=== PATIENT | female | born 1975 | race Caucasian/White ===

== ENCOUNTER 2018-03-13 20:54 | Emergency (ER) | payer OTHER ==
[2018-03-13 20:55] VITALS: BMI 41.8
[2018-03-13 21:29] VITALS: TEMP 99.2
--- NOTE | 2018-03-13 22:40 | C.PDOC ---
History Of Present Illness 42 y/o female c/o left ankle pain and swelling since 11 am that has worsened; pt accidentally stepped in a hole on street and twisted ankle. denies any other injuries. Time Seen by Provider: 03/13/18 21:36 Chief Complaint (Nursing): Lower Extremity Problem/Injury History Per: Patient History/Exam Limitations: no limitations Onset/Duration Of Symptoms: Days (1) Current Symptoms Are (Timing): Still Present Severity: Moderate - Ankle/Foot Description Of Injury: Twisted Past Medical History Reviewed: Historical Data, Nursing Documentation, Vital Signs Vital Signs: Last Vital Signs Temp 99.2 F 03/13/18 21:26 Pulse 75 03/13/18 23:17 Resp 18 03/13/18 23:17 BP 138/71 03/13/18 23:17 Pulse Ox 98 03/13/18 23:17 - Medical History PMH: Arthritis, Asthma - [facility] Procedures LAPAROSCOPIC REPAIR UMBILICAL HERNIA W GRAFT OR PROSTHESIS (03/22/13) Family History: States: Unknown Family Hx - Social History Hx Tobacco Use: No Hx Alcohol Use: No Hx Substance Use: No - Immunization History Hx Tetanus Toxoid Vaccination: No Hx Influenza Vaccination: No Hx Pneumococcal Vaccination: No Review Of Systems Constitutional: Negative for: Fever, Chills Musculoskeletal: Positive for: Foot Pain (left ankle) Skin: Negative for: Rash, Bruising Neurological: Negative for: Weakness, Numbness Physical Exam - Physical Exam Appears: Non-toxic, No Acute Distress Skin: Warm, Dry Head: Atraumatic, Normacephalic Extremity: Other (swelling and tenderness to left lateral malleolus; +2 dp pulse , from. 5tyh metatarsal non tender) Pulses: Left Dorsalis Pedis: Normal, Right Dorsalis Pedis: Normal Neurological/Psych: Oriented x3, Normal Speech, Normal Cognition, Normal Motor, Normal Sensation ED Course And Treatment O2 Sat by Pulse Oximetry: 100 Orthopedic Time Performed: 23:05 Time Out: Side verified, Site verified, Patient ID confirmed Procedure: Splint Type: Short, Posterior Location: Left, Leg Consent obtained: Verbal Performed by: Mid-level Provider (done by cp, checked by me.) Diagnosis: Sprain Location: Lateral Bone: Malleolus Capillary refill: Normal Distal Sensation: Normal Distal Motor Function: Normal Distal Sensation: Normal Distal Motor Function: Normal Medical Decision Making Medical Decision Making: twisted swollen ankle- analgesic and xray. no fx noted on xray- posterior splint applied and crutches given. Disposition Counseled Patient/Family Regarding: Studies Performed, Diagnosis, Need For Followup, Rx Given - Disposition Referrals: Mason Ng III, MD [Staff Provider] - Disposition: HOME/ ROUTINE Disposition Time: 23:07 Condition: GOOD Additional Instructions: Please use crutches for first few days, no weight bearing, then gradually add weight gently. Keep left leg/foot elevated whenever possible to reduce swelling. Follow up with orthopedics. Call for appointment. Tylenol for pain. Prescriptions: Acetaminophen [Tylenol 325mg tab] 650 mg PO Q4 #50 tab Instructions: Ankle Sprain (DC), How to Use Crutches Forms: [facility] (Citizen [place]), General Discharge Instructions - Clinical Impression Clinical Impression: Sprain of ankle, left
[2018-03-13 23:20] VITALS: BP 138/71; PULSE 75; RESP 18
[2018-03-14 01:41] VITALS: O2SAT 100
--- NOTE | 2018-03-14 18:04 | RAD ---
PROCEDURE: Left Ankle Radiographs. HISTORY: lateral malleolus pain swelling COMPARISON: None FINDINGS: BONES: Normal. No fracture. JOINTS: Normal. No osteoarthritis. Ankle mortise maintained. Talar dome intact SOFT TISSUES: Circumferential soft tissue swelling. OTHER FINDINGS: None. IMPRESSION: No acute fracture. Circumferential soft tissue swelling.
== END 2018-03-13 23:20 | disposition home or self-care (01) ==
LOC: C.ER 20:54
DX: S93.402A Sprain of unspecified ligament of left ankle, initial encounter (principal); X50.1XXA Overexertion from prolonged static or awkward postures, initial encounter; Y92.410 Unspecified street and highway as the place of occurrence of the external cause

== ENCOUNTER 2018-03-18 09:22 | Emergency (ER) | payer OTHER ==
[2018-03-18 09:23] VITALS: BMI 41.8
[2018-03-18 09:28] VITALS: O2SAT 99
[2018-03-18 09:37] VITALS: BP 135/102; PULSE 89; TEMP 99.4
[2018-03-18 10:14] VITALS: RESP 18
--- NOTE | 2018-03-18 12:11 | C.PDOC ---
History Of Present Illness 42 y/o female presents to the ER requesting a splint change in the left ankle. Patient states that she was seen in [facility] 5 days ago and a posterior splint was placed on the left ankle. Patient reports that she had an X-Ray - Left ankle which was negative for fracture and she had a posterior splint placed on the left ankle. She notes that she is weightbearing with the ankle. Chief Complaint (Nursing): Lower Extremity Problem/Injury History Per: Patient History/Exam Limitations: no limitations Onset/Duration Of Symptoms: Days Current Symptoms Are (Timing): Still Present Severity: Moderate Past Medical History Reviewed: Historical Data, Nursing Documentation, Vital Signs Vital Signs: Last Vital Signs Temp 99.4 F 03/18/18 09:36 Pulse 89 03/18/18 09:36 Resp 18 03/18/18 10:13 BP 135/102 H 03/18/18 09:36 Pulse Ox 99 03/18/18 12:29 - Medical History PMH: Arthritis, Asthma Other Surgeries: Hx of surgeries - [facility] Procedures LAPAROSCOPIC REPAIR UMBILICAL HERNIA W GRAFT OR PROSTHESIS (03/22/13) Family History: States: No Known Family Hx - Social History Hx Tobacco Use: No Hx Alcohol Use: No Hx Substance Use: No - Immunization History Hx Tetanus Toxoid Vaccination: No Hx Influenza Vaccination: No Hx Pneumococcal Vaccination: No Review Of Systems Except As Marked, All Systems Reviewed And Found Negative. Musculoskeletal: Positive for: Leg Pain (left leg pain) Physical Exam - Physical Exam Appears: Non-toxic, No Acute Distress Skin: Normal Color, Warm, Diaphoretic Head: Atraumatic, Normacephalic Eye(s): bilateral: Normal Inspection Nose: Normal Oral Mucosa: Moist Neck: Supple Chest: Symmetrical Cardiovascular: Rhythm Regular Respiratory: Normal Breath Sounds, No Rales, No Rhonchi, No Wheezing Extremity: Normal ROM, No Tenderness, No Deformity, No Swelling Neurological/Psych: Oriented x3, Normal Speech ED Course And Treatment O2 Sat by Pulse Oximetry: 99 (RA) Pulse Ox Interpretation: Normal Disposition - Disposition Referrals: Ute Lee, [Non-Staff] - Disposition: HOME/ ROUTINE Disposition Time: 09:40 Condition: GOOD Additional Instructions: JUAQUIN SANTIAGO, thank you for letting us take care of you today. Your provider was Ferny Escoto DO and you were treated for LT LEG PAIN. The emergency medical care you received today was directed at your acute symptoms. If you were prescribed any medication, please fill it and take as directed. It may take several days for your symptoms to resolve. Return to the Emergency Department if your symptoms worsen, do not improve, or if you have any other problems. Please contact your doctor or call one of the physicians/clinics you have been referred to that are listed on the Patient Visit Information form that is included in your discharge packet. Bring any paperwork you were given at discharge with you along with any medications you are taking to your follow up visit. Our treatment cannot replace ongoing medical care by a primary care provider outside of the emergency department. Thank you for allowing the [facility] team to be part of your care today. Please make sure to follow up with orthopedics as already scheduled. Instructions: Ankle Sprain (DC) Forms: [employer] ([place]an) - Clinical Impression Clinical Impression: Sprain of ankle, left - Scribe Statement The provider has reviewed the documentation as recorded by the Kortney Morris Provider Attestation: All medical record entries made by the Kortney were at my direction and personally dictated by me. I have reviewed the chart and agree that the record accurately reflects my personal performance of the history, physical exam, medical decision making, and the department course for this patient. I have also personally directed, reviewed, and agree with the discharge instructions and disposition.
== END 2018-03-18 10:14 | disposition home or self-care (01) ==
LOC: C.ER 09:22
DX: S93.402D Sprain of unspecified ligament of left ankle, subsequent encounter (principal); X58.XXXD Exposure to other specified factors, subsequent encounter